=== PATIENT | female | born 1985 | race Caucasian/White ===

== ENCOUNTER 2020-05-14 14:46 | Emergency (ER) | payer BC ==
[2020-05-14 15:07] VITALS: BP 132/82
--- NOTE | 2020-05-14 16:00 | ER Document Report ---
ED Extremity Problem, Upper - General Stated Complaint: HAND PAIN Time Seen by Provider: 05/14/20 15:51 Notes: CHIEF COMPLAINT: Right hand injury HPI: 34-year-old female who is right-hand dominant presenting for crush injury of the right hand. Patient was adjusting a ladder and it slammed closed on her hand. Patient states she can flex the fingers of the hand but has difficulty gripping things. Denies wrist pain denies other injuries or complaints ROS: See HPI - all other systems were reviewed and are otherwise negative Constitutional: no fever Integumentary: no rash Allergy: no hives Musculoskeletal: + extremity pain or swelling Neurological: no numbness/tingling, + weakness MEDICATIONS: I agree with the patient medications as charted by the RN. ALLERGIES: I agree with the allergies as charted by the RN. PAST MEDICAL HISTORY/PAST SURGICAL HISTORY: Reviewed and agree as charted by RN. SOCIAL HISTORY: Reviewed and agree as charted by RN. FAMILY HISTORY: No significant familial comorbid conditions directly related to patient complaint EXAM: Reviewed vital signs as charted by RN. CONSTITUTIONAL: Alert and oriented and responds appropriately to questions. Well-appearing; well-nourished HEAD: Normocephalic; atraumatic EYES: Conjunctivae clear, sclerae non-icteric ENT: normal nose; no rhinorrhea; moist mucous membranes NECK: Supple without meningismus CARD: symmetric distal pulses RESP: Normal chest excursion without splinting or tachypnea ABD/GI: non-distended BACK: The back appears normal EXT: Normal ROM in all joints; no cyanosis, no effusions, soft tissue swelling with bruising to the dorsal aspect of the right hand over the third and fourth metacarpals. Tenderness on palpation of this region. Patient is able to fully flex and extend the fingers of the right hand as well as abduct the thumb. No tenderness in the snuffbox region, no tenderness over the distal radius or distal ulna. SKIN: Normal color for age and race; warm; dry; good turgor; no acute lesions noted NEURO: Moves all extremities equally; Motor and sensory function intact PSYCH: The patient's mood and manner are appropriate. Grooming and personal hygiene are appropriate. MDM: 34-year-old female crush type injury to the dorsal aspect of the right hand will obtain x-ray for fracture - Related Data Allergies/Adverse Reactions: No Known Allergies Allergy (Verified 05/14/20 15:50) Home Medications: concerta. ritalin Past Medical History - Social History Smoking Status: Current Every Day Smoker Chew tobacco use (# tins/day): No Frequency of alcohol use: None Drug Abuse: None Family History: Reviewed & Not Pertinent Patient has homicidal ideation: No Psychiatric Medical History: Reports: Hx Attention Deficit Hyperactivity Disorder Past Surgical History: Reports: Hx Section - x 2 Physical Exam - Vital signs Vitals: Temp Pulse Resp BP Pulse Ox 99.0 F 109 H 20 132/82 H 100 05/14/20 15:00 05/14/20 15:00 05/14/20 15:00 05/14/20 15:00 05/14/20 15:00 Course - Re-evaluation Re-evalutation: 05/14/20 16:44 I do not visualize a fracture in the area of the patient's injury. Will discharge home to follow-up with orthopedics - Vital Signs Vital signs: Temp Pulse Resp BP Pulse Ox 99.0 F 109 H 20 132/82 H 100 05/14/20 15:00 05/14/20 15:00 05/14/20 15:00 05/14/20 15:00 05/14/20 15:00 Procedures - Immobilization Right Hand Time completed: 16:45 Pre-Proc Neuro Vasc Exam: Normal Immobilizer type: Hay wrap Performed by: PCT Post-Proc Neuro Vasc Exam: Normal, Unchanged from pre-exam Alignment checked and good: Yes Discharge - Discharge Clinical Impression: Contusion of hand, right Qualifiers: Encounter type: initial encounter Qualified Code(s): S60.221A - Contusion of right hand, initial encounter Condition: Stable Disposition: HOME, SELF-CARE Additional Instructions: 1. splint for comfort 2. medicines for pain as prescribed 3. ice the hand three times daily for swelling for 10 minutes at a time, do not place ice directly on skin 4. follow up with orthopedics for further evaluation and treatment, call for appt. Prescriptions: Diclofenac Sodium [Voltaren 50 Mg Edmundo.] 50 mg PO BID #20 tablet. Referrals: LUAN PAT DO [ACTIVE STAFF] - Follow up as needed
--- NOTE | 2020-05-14 16:43 | RADIOLOGY REPORT (SQ) ---
EXAM DESCRIPTION: HAND RIGHT 3 VIEWS IMAGES COMPLETED DATE/TIME: 05/14/2020 4:27 pm REASON FOR STUDY: trauma COMPARISON: None. EXAM PARAMETERS: NUMBER OF VIEWS: Three views. TECHNIQUE: AP, lateral and oblique radiographic images acquired of the right hand. LIMITATIONS: None. FINDINGS: MINERALIZATION: Normal. BONES: No acute fracture or dislocation. No worrisome bone lesions. JOINTS: No effusion. SOFT TISSUES: No significant soft tissue swelling. No radiopaque foreign body. OTHER: No other significant finding. IMPRESSION: NO FRACTURE. TECHNICAL DOCUMENTATION: JOB ID: [id number] [place]-[id number] 2010 [employer]- All Rights Reserved Reading location - IP/workstation name: [email or web address]
== END 2020-05-14 17:17 | disposition home or self-care (01) ==
LOC: ER 14:46
DX: S60.221A Contusion of right hand, initial encounter (principal); S67.21XA Crushing injury of right hand, initial encounter; W23.0XXA Caught, crushed, jammed, or pinched between moving objects, initial encounter; Y93.89 Activity, other specified; F17.200 Nicotine dependence, unspecified, uncomplicated; F90.9 Attention-deficit hyperactivity disorder, unspecified type; Z79.899 Other long term (current) drug therapy
CPT/HCPCS: 99283

== ENCOUNTER 2020-06-08 08:03 | Day surgery (SDC) | payer BC ==
[2020-06-05 12:46] LABS: HEMATOCRIT 42.3 % (36.0-47.0); HEMOGLOBIN 14.6 g/dL (12.0-15.5); MEAN CORPUSCULAR HEMOGLOBIN 30.2 pg (27.0-33.4); MEAN CORPUSCULAR HGB CONC 34.5 g/dL (32.0-36.0); MEAN CORPUSCULAR VOLUME 88 fl (80-97); PLATELET COUNT 264 10^3/uL (150-450); RED BLOOD COUNT 4.84 10^6/uL (3.72-5.28); RED CELL DISTRIBUTION WIDTH 12.3 % (11.5-14.0); WHITE BLOOD COUNT 6.4 10^3/uL (4.0-10.5)
[2020-06-05 12:52] LABS: APPEARANCE,URINE CLEAR; BILIRUBIN,URINE NEGATIVE (NEGATIVE); COLOR,URINE STRAW; GLUCOSE, URINE NEGATIVE (NEGATIVE); KETONES,URINE NEGATIVE (NEGATIVE); LEUKOCYTE ESTERASE,URINE NEGATIVE (NEGATIVE); NITRITE,URINE NEGATIVE (NEGATIVE); PROTEIN,URINE NEGATIVE (NEGATIVE); URINE SPECIFIC GRAVITY 1.005; UROBILINOGEN,URINE NEGATIVE mg/dL (<2.0)
--- NOTE | 2020-06-05 12:57 | RADIOLOGY REPORT (SQ) ---
EXAM DESCRIPTION: CHEST 2 VIEWS IMAGES COMPLETED DATE/TIME: 06/05/2020 12:35 pm REASON FOR STUDY: PRE OP COMPARISON: None. EXAM PARAMETERS: NUMBER OF VIEWS: two views TECHNIQUE: Digital Frontal and Lateral radiographic views of the chest acquired. RADIATION DOSE: NA LIMITATIONS: none FINDINGS: LUNGS AND PLEURA: No opacities, masses or pneumothorax. No pleural effusion. MEDIASTINUM AND HILAR STRUCTURES: No masses or contour abnormalities. HEART AND VASCULAR STRUCTURES: Heart normal size. No evidence for failure. BONES: No acute findings. HARDWARE: None in the chest. OTHER: No other significant finding. IMPRESSION: NO ACUTE RADIOGRAPHIC FINDING IN THE CHEST. TECHNICAL DOCUMENTATION: JOB ID: [id number] 2010 [employer]- All Rights Reserved Reading location - IP/workstation name: [email or web address]
[2020-06-05 13:11] LABS: ALBUMIN 4.4 g/dL (3.5-5.0); ALKALINE PHOSPHATASE 72 U/L (38-126); ANION GAP 7 (5-19); ASPARTATE AMINO TRANSFERASE 30 U/L (14-36); BILIRUBIN,DIRECT 0.1 mg/dL (0.0-0.4); BILIRUBIN,TOTAL 0.4 mg/dL (0.2-1.3); BLOOD UREA NITROGEN 9 mg/dL (7-20); CALCIUM 9.5 mg/dL (8.4-10.2); CARBON DIOXIDE 29 mmol/L (22-30); CHLORIDE 104 mmol/L (98-107); GLUCOSE 79 mg/dL (75-110); POTASSIUM 4.4 mmol/L (3.6-5.0); TOTAL PROTEIN 7.1 g/dL (6.3-8.2)
--- NOTE | 2020-06-05 19:08 | EKG REPORT ---
SEVERITY:- NORMAL ECG - SINUS RHYTHM : Confirmed by: Ade Silver MD 05-Jun-2020 19:07:50
[~2020-06-08 08:03] MED LIST: CEFAZOLIN 1 GM/D5W RTU 1 GM/50 ML RTUPB IV PRN; FENTANYL CITRATE INJ/PF 250 MCG/5 ML AMPULE ONE; HYDROMORPHONE HCL INJ/PF 2 MG/ML AMPULE ONE; LACTATED RINGERS 1000 ML IV PRN; MIDAZOLAM 2 MG/2 ML INJ ONE; PROPOFOL INJ 200 MG/20 ML VIAL IV ONE; SUGAMMADEX SODIUM 200 MG/2 ML SDV IV ONE
[2020-06-08] MEDS ORDERED: CEFAZOLIN 2 GM/D5W RTU 2 GM/50 ML RTUPB IV ONE (08:45)
[2020-06-08] MEDS ORDERED: SCOPOLAMINE HYDROBROMIDE 1.5 MG PATCH.TD72 ONE (09:31)
[2020-06-08] MEDS ORDERED: SCOPOLAMINE HYDROBROMIDE 1.5 MG PATCH.TD72 TD ONE (09:35)
[2020-06-08] MEDS ORDERED: CEFAZOLIN 2 GM/D5W RTU 2 GM/50 ML RTUPB IV PRN (09:58)
[2020-06-08] MEDS ORDERED: DIPHENHYDRAMINE HCL 50 MG/ML VIAL IV PRN (10:51)
[2020-06-08] MEDS ORDERED: OXYCODONE-ACETAMINOPHEN 5-325 MG TABLET PO PRN ×3 (10:51→11:49)
[2020-06-08] MEDS ORDERED: MORPHINE SULFATE 10 MG/ML INJ IV PRN ×2 (10:51→11:49)
[2020-06-08] MEDS ORDERED: PROMETHAZINE HCL INJ 25 MG/1 ML VIAL IV PRN ×3 (10:51→11:49)
[2020-06-08] MEDS ORDERED: FENTANYL CITRATE INJ/PF 100 MCG/2 ML AMPUL IV PRN ×2 (10:51)
[2020-06-08] MEDS ORDERED: MEPERIDINE HCL/PF INJ 25 MG/1 ML DISP.SYRIN IV PRN (10:51)
[2020-06-08] MEDS ORDERED: RINGERS SOLUTION,LACTATED 1,000 ML IV PRN (11:49)
[2020-06-08] MEDS ORDERED: ACETAMINOPHEN 325 MG TABLET PO PRN (11:49)
[2020-06-08] MEDS ORDERED: ACETAMINOPHEN 1,000 MG/100 ML RTUPB IV PRN (11:49)
[2020-06-08] MEDS ORDERED: SIMETHICONE 80 MG TAB.CHEW PO PRN (11:49)
--- NOTE | 2020-06-08 12:02 | Operative Report ---
Operative Report DATE OF SURGERY: 06/08/20 PREOPERATIVE DIAGNOSIS: Abnormal uterine bleeding, pelvic pain, pelvic adhesive disease POSTOPERATIVE DIAGNOSIS: Same OPERATION: Robotic assisted laparoscopic hysterectomy with bilateral salpingectomy and lysis of adhesions SURGEON: BIGG CASTILLO 1ST CLAIM TAKER: DESIREE TOBIN 2ND Regulated Program Manager: DARSHAN WILLETT ANESTHESIA: GA TISSUE REMOVED OR ALTERED: Uterus, cervix, bilateral fallopian tubes COMPLICATIONS: None ESTIMATED BLOOD LOSS: 150 cc INTRAOPERATIVE FINDINGS: Multiple adhesions of the bladder to the lower uterine segment that of note had the uterus folded in a C configuration almost in half along the hysterotomy line from her previous C-sections, the ovaries were normal in appearance fallopian tubes had multiple filmy adhesions and evidence of sterilization via Filshie clips, PROCEDURE: Patient was taken to the operating room prepared and draped in normal sterile fashion in dorsolithotomy position. Under sterile conditions a Julian catheter was placed to gravity. Speculum was placed into the vagina and the cervix was grasped on the anterior lip with a single-tooth tenaculum. The cervix was then dilated to accommodate a medium V care uterine manipulator. Manipulator it was placed gloves were changed and attention was turned to the upper portion of the case. A 2-1/2 cm umbilical skin incision was made 11 blade and this was carried through to the underlying layer of fascia with the same 11 blade. It was grasped to Cruz's acted with Ole's. New cavity was entered bluntly. A GelPort was placed in a normal fashion the camera port and air seal in the appropriate locations. Arnold was then inflated with approximately 2 L of CO2 gas. The camera was then introduced into the peritoneal cavity through the camera port and the patient was placed in steep Trendelenburg. The above findings were noted. Under direct visualization two 5 mm ports were placed approximately 10 cm on either side of the umbilicus. The robot was then docked with the vessel sealer placed on the patient's left and the monopolar scissors placed placed on the patient's right. I then unscrubbed and set at the robotic console beginning with the adhesions of the bladder these were dissected with sharp and blunt dissection using the monopolar scissors only the adhesions away from the lower uterine segment. Once these were released in a satisfactory fashion to provide more visualization the left fallopian tube was transected from the uterus using the vessel sealer and monopolar scissors as needed. The fallopian tube was then removed through the assistance port. The ovarian ligament was then transected using the vessel sealer. The uterine artery was skeletonized using blunt and sharp dissection and ligated using the vessel sealer down to the level of the external cervical os. The bladder flap was then begun using monopolar scissors and blunt dissection over the V care cup noted through the mucosa. Attention was then turned to the right adnexa where the fallopian tube was transected in a si milar fashion. The utero-ovarian ligament was transected using the vessel sealer. The Uterine artery was then transected using the vessel sealer and skeletonized using blunt dissection. The vessel sealer was again used to completely transect the uterine artery down to the level of the external cervical os. Dense adhesions at the hysterotomy were released using monopolar scissors noted at this time that the uterus did pop into a normal configuration and was no longer folded. the bladder flap was completed using similar sharp and blunt dissection over the V care cup noted through the mucosa. Once the bladder was felt to be adequately away from the lower uterine segment, the colpotomy was begun on the anterior aspect of the cervix following the outline of the V care cup mucosa. The cup was followed in a circumferential fashion completely around the cervix till the specimen was completely freed. The specimen was then removed through the vaginal defect. The instruments were then changed to a Mario needle truck driver supervisor and pro-grasp. AV lock needle was introduced through the assistance port. The lock needle was used to close the vaginal cuff and hemostasis. The needle was then removed through the assistance port. The peritoneal cavity was carefully inspected the ureters were noted to both be peristalsing and there was no signs of hydroureter. The robot was then undocked. The fascia was closed at the umbilical skin incision seen 0 Vicryl 3 skin incisions were closed using 4-0 Vicryl. Sponge lap and needle counts were correct x2 and the patient was taken to recovery in stable condition.
[2020-06-08] MEDS ORDERED: FENTANYL CITRATE INJ/PF 100 MCG/2 ML AMPUL ONE (12:29)
[2020-06-08] MEDS: FENTANYL CITRATE INJ/PF 100 MCG/2 ML AMPUL IV PRN ×2 (12:30→12:49)
[2020-06-08] MEDS ORDERED: ACETAMINOPHEN 1,000 MG/100 ML RTUPB IV ONE (12:44)
[2020-06-08] MEDS ORDERED: METOCLOPRAMIDE HCL INJ/PF 10 MG/2 ML SDV ONE (15:00)
[2020-06-08] MEDS ORDERED: GLYCOPYRROLATE 1 MG/5 ML VIAL ONE (15:00)
[2020-06-08] MEDS ORDERED: DIPHENHYDRAMINE HCL 50 MG/ML VIAL ONE (15:00)
[2020-06-08] MEDS ORDERED: DEXAMETHASONE SOD PHOSPHATE INJ 4 MG/1 ML VIAL ONE (15:00)
[2020-06-08] MEDS ORDERED: ROCURONIUM BROMIDE INJ 50 MG/5 ML VIAL IV ONE (15:00)
[2020-06-08] MEDS ORDERED: SUCCINYLCHOLINE CHLORIDE INJ 200 MG/10 ML VIAL ONE (15:00)
[2020-06-08] MEDS ORDERED: ONDANSETRON HCL INJ/PF 4 MG/2 ML SDV ONE (15:00)
[2020-06-08] MEDS ORDERED: KETOROLAC TROMETHAMINE 60 MG/2 ML SDV ONE (15:00)
[2020-06-08] MEDS: OXYCODONE-ACETAMINOPHEN 5-325 MG TABLET PO PRN (16:17)
[2020-06-08] MEDS: KETOROLAC TROMETHAMINE INJ/PF 30 MG/1 ML SDV IV SCH ×2 (18:26→22:15)
[2020-06-08] MEDS: DOCUSATE SODIUM 100 MG CAPSULE PO SCH (18:27)
[2020-06-09] MEDS: OXYCODONE-ACETAMINOPHEN 5-325 MG TABLET PO PRN ×2 (00:44→08:27)
[2020-06-09] MEDS: KETOROLAC TROMETHAMINE INJ/PF 30 MG/1 ML SDV IV SCH (06:02)
[2020-06-09 07:14] LABS: HEMATOCRIT 32.6 % (36.0-47.0); HEMOGLOBIN 11.4 g/dL (12.0-15.5); MEAN CORPUSCULAR HEMOGLOBIN 30.6 pg (27.0-33.4); MEAN CORPUSCULAR VOLUME 88 fl (80-97); PLATELET COUNT 214 10^3/uL (150-450); RED BLOOD COUNT 3.72 10^6/uL (3.72-5.28); RED CELL DISTRIBUTION WIDTH 12.4 % (11.5-14.0); WHITE BLOOD COUNT 12.1 10^3/uL (4.0-10.5)
[2020-06-09 08:23] VITALS: BP 105/63
--- NOTE | 2020-06-09 08:34 | PDOC DISCHARGE SUMMARY ---
Impression - Admit/DC Date/PCP Discharge Date: 06/09/20 - Discharge Diagnosis (1) Pelvic adhesive disease Is this a current diagnosis for this admission?: Yes (2) Pelvic pain Is this a current diagnosis for this admission?: Yes (3) Abnormal uterine bleeding Is this a current diagnosis for this admission?: Yes - Assessment Summary: underwent RATLH w/ b/l salpingectomy. Normal postopertive course. ready for discharge - Additional Information Resuscitation Status: Full Code Discharge Diet: As Tolerated Discharge Activity: Activity As Tolerated, Balance Activity w/Rest, No Driving, No Lifting Over 10 Pounds, No Lifting/Push/Pulling, Pelvic Rest, No tub bath Prescriptions: Oxycodone HCl/Acetaminophen [Percocet 5-325 mg Tablet] 1 tab PO Q4HP PRN #30 tablet PRN Reason: Docusate Sodium [Colace 100 mg Capsule] 100 mg PO BID #60 capsule Ibuprofen [Motrin 800 mg Tablet] 800 mg PO Q8H #60 tablet Home Medications: Methylphenidate HCl [Methylphenidate ER] 54 mg PO DAILY 06/05/20 Methylphenidate HCl [Ritalin] 10 mg PO DAILY 06/05/20 Docusate Sodium [Colace 100 mg Capsule] 100 mg PO BID #60 capsule 06/09/20 Ibuprofen [Motrin 800 mg Tablet] 800 mg PO Q8H #60 tablet 06/09/20 Oxycodone HCl/Acetaminophen [Percocet 5-325 mg Tablet] 1 tab PO Q4HP PRN #30 tablet 06/09/20 History of Present Illiness History of Present Illness: KOKI BARBOUR is a 34 year old female Physical Exam - Physical Exam Vital Signs: Temp Pulse Resp BP Pulse Ox 98.3 F 87 16 107/64 98 06/09/20 08:04 06/09/20 08:04 06/09/20 08:04 06/09/20 08:04 06/09/20 08:04 Intake & Output 06/08/20 06/09/20 06/10/20 06:59 06:59 06:59 Intake Total 2200 Output Total 425 Balance 1775 Weight 68.1 kg Results Laboratory Results: WBC 12.1 10^3/uL (4.0-10.5) H 06/09/20 06:35 RBC 3.72 10^6/uL (3.72-5.28) 06/09/20 06:35 Hgb 11.4 g/dL (12.0-15.5) L 06/09/20 06:35 Hct 32.6 % (36.0-47.0) L 06/09/20 06:35 MCV 88 fl (80-97) 06/09/20 06:35 MCH 30.6 pg (27.0-33.4) 06/09/20 06:35 MCHC 35.0 g/dL (32.0-36.0) 06/09/20 06:35 RDW 12.4 % (11.5-14.0) 06/09/20 06:35 Plt Count 214 10^3/uL (150-450) 06/09/20 06:35 Sodium 139.5 mmol/L (137-145) 06/05/20 12:06 Potassium 4.4 mmol/L (3.6-5.0) 06/05/20 12:06 Chloride 104 mmol/L (98-107) 06/05/20 12:06 Carbon Dioxide 29 mmol/L (22-30) 06/05/20 12:06 Anion Gap 7 (5-19) 06/05/20 12:06 BUN 9 mg/dL (7-20) 06/05/20 12:06 Creatinine 0.88 mg/dL (0.52-1.25) 06/05/20 12:06 Est GFR ( Amer) > 60 (>60) 06/05/20 12:06 Est GFR (MDRD) Non-Af > 60 (>60) 06/05/20 12:06 Glucose 79 mg/dL (75-110) 06/05/20 12:06 Calcium 9.5 mg/dL (8.4-10.2) 06/05/20 12:06 Total Bilirubin 0.4 mg/dL (0.2-1.3) 06/05/20 12:06 Direct Bilirubin 0.1 mg/dL (0.0-0.4) 06/05/20 12:06 Neonat Total Bilirubin Not Reportable 06/05/20 12:06 Neonat Direct Bilirubin Not Reportable 06/05/20 12:06 Neonat Indirect Bili Not Reportable 06/05/20 12:06 AST 30 U/L (14-36) 06/05/20 12:06 ALT 45 U/L (<35) H 06/05/20 12:06 Alkaline Phosphatase 72 U/L (38-126) 06/05/20 12:06 Total Protein 7.1 g/dL (6.3-8.2) 06/05/20 12:06 Albumin 4.4 g/dL (3.5-5.0) 06/05/20 12:06 Urine Color STRAW 06/05/20 12:00 Urine Appearance CLEAR 06/05/20 12:00 Urine pH 6.0 (5.0-9.0) 06/05/20 12:00 Ur Specific [place] 1.005 06/05/20 12:00 Urine Protein NEGATIVE mg/dL (NEGATIVE) 06/05/20 12:00 Urine Glucose (UA) NEGATIVE mg/dL (NEGATIVE) 06/05/20 12:00 Urine Ketones NEGATIVE mg/dL (NEGATIVE) 06/05/20 12:00 Urine Blood SMALL (NEGATIVE) H 06/05/20 12:00 Urine Nitrite NEGATIVE (NEGATIVE) 06/05/20 12:00 Urine Bilirubin NEGATIVE (NEGATIVE) 06/05/20 12:00 Urine Urobilinogen NEGATIVE mg/dL (<2.0) 06/05/20 12:00 Ur Leukocyte Esterase NEGATIVE (NEGATIVE) 06/05/20 12:00 Urine WBC (Auto) 1 /HPF 06/05/20 12:00 Urine Bacteria (Auto) TRACE /HPF 06/05/20 12:00 Squamous Epi Cells Auto 1 /HPF 06/05/20 12:00 Urine Mucus (Auto) RARE /LPF 06/05/20 12:00 Urine Ascorbic Acid NEGATIVE (NEGATIVE) 06/05/20 12:00 Urine HCG, Qual NEGATIVE (NEGATIVE) 06/08/20 08:10 COVID-19 Source See comment 06/05/20 12:05 COVID-19 (KELLY) Not Detected (Not Detect) 06/05/20 12:05 Blood Type O POSITIVE 06/05/20 12:06 Antibody Screen NEGATIVE 06/05/20 12:06 Impressions: Chest X-Ray 06/05/20 12:27 IMPRESSION: NO ACUTE RADIOGRAPHIC FINDING IN THE CHEST. Stroke Is this a Stroke Patient?: No Acute Heart Failure Is this a Heart Failure Patient?: No
[2020-06-09] MEDS ORDERED: INFLUENZA QUAD (6MOS+) 2020-21 VAC 0.5 ML SYR IM ONE (09:15)
[2020-06-09] MEDS: DOCUSATE SODIUM 100 MG CAPSULE PO SCH (09:22)
[2020-06-09] MEDS ORDERED: IBUPROFEN 800 MG TABLET PO SCH (12:00)
[2020-06-10] MEDS ORDERED: INFLUENZA QUAD (6MOS+) 2020-21 VAC 0.5 ML SYR IM ONE (08:00)
== END 2020-06-09 09:51 | disposition home or self-care (01) ==
LOC: OROUT 08:03 → 2N 13:26 → OROUT 06-09 09:51
PROVIDERS: ATTEND Obstetrics & Gynecology
DX: N93.9 Abnormal uterine and vaginal bleeding, unspecified (principal); R10.2 Pelvic and perineal pain; N73.6 Female pelvic peritoneal adhesions (postinfective); N80.0 Endometriosis of uterus; N83.8 Other noninflammatory disorders of ovary, fallopian tube and broad ligament; Z23 Encounter for immunization; Z20.828 Contact with and (suspected) exposure to other viral communicable diseases; F90.9 Attention-deficit hyperactivity disorder, unspecified type; N92.6 Irregular menstruation, unspecified; F17.210 Nicotine dependence, cigarettes, uncomplicated; Z79.899 Other long term (current) drug therapy; Z86.19 Personal history of other infectious and parasitic diseases; Z98.51 Tubal ligation status
CPT/HCPCS: 49329; 58571; S2900; 36415; 71046; 80053; 81001; 81025; 840; 85027; 86850; 86900; 86901; 87635; 88307; 90471; 90686; 93005; 93010; 94799; A4649; C1758; C9803; G0008; J0131; J0330; J0690; J1100; J1170; J1200; J1885; J2250; J2270; J2405; J2704; J2765; J3010; J3490